=== PATIENT | female | born 1980 | race Caucasian/White ===

== ENCOUNTER 2016-10-07 22:07 | Emergency (ER) | payer OTHER ==
[~2016-10-07] VITALS: Ht 175.3 cm; Wt 54.4 kg
[2016-10-07 22:07] VITALS: BP_SYST 112
[2016-10-07] MEDS ORDERED: TOPI200T PO (22:47)
[2016-10-07] MEDS ORDERED: RIFA300C2 PO (22:47)
[2016-10-07] MEDS ORDERED: SER100 PO (22:47)
[2016-10-07] MEDS ORDERED: [UNRECOGNIZED DRUG - CODE] PO (22:47)
[2016-10-07] MEDS ORDERED: VANC1.257 IV (22:47)
[2016-10-07] MEDS ORDERED: MULT PO (22:51)
[2016-10-07] MEDS ORDERED: MELA1LIQ PO (23:03)
[2016-10-07] MEDS ORDERED: MORP30TA59 PO (23:03)
[2016-10-07] MEDS ORDERED: LUV50 PO (23:03)
[2016-10-07] MEDS ORDERED: GABA-531 PO (23:03)
[2016-10-07] MEDS ORDERED: ASCO500T20 PO (23:03)
[2016-10-07] MEDS ORDERED: LEVO750P3 IV (23:03)
[2016-10-07] MEDS ORDERED: FERR-57 PO (23:03)
[2016-10-07] MEDS ORDERED: BACL20TA PO (23:03)
[2016-10-07] MEDS ORDERED: FLUT16SP16 NS (23:03)
[2016-10-07] MEDS ORDERED: LACT10SO66 PO (23:03)
[2016-10-07] MEDS ORDERED: FAMO40TA7 PO (23:03)
[2016-10-07] MEDS ORDERED: BIOT25007 PO (23:03)
[2016-10-07] MEDS ORDERED: ZOLP10TA2 PO (23:05)
[2016-10-07] MEDS ORDERED: ACET-2165 PO (23:11)
[2016-10-07] MEDS ORDERED: ACET-73 PO ×2 (23:11)
[2016-10-07] MEDS ORDERED: MAGN400O4 PO (23:23)
[2016-10-07] MEDS ORDERED: TUM500 GT (23:23)
[2016-10-07] MEDS ORDERED: ALBU2.5V7 INH (23:23)
[2016-10-07] MEDS ORDERED: SACC250C3 PO (23:23)
[2016-10-07] MEDS ORDERED: PROM25TA15 PO (23:23)
[2016-10-07] MEDS ORDERED: OXYC-508 PO (23:23)
[2016-10-07] MEDS ORDERED: ALPR1TAB2 PO (23:23)
[2016-10-08 00:24] LABS: BILIRUBIN,URINE NEGATIVE (NEGATIVE); BLOOD, URINE NEGATIVE (NEGATIVE); CLARITY/URINE CLEAR (CLEAR); COLOR,URINE YELLOW (YELLOW); GLUCOSE,URINE NEGATIVE (NEGATIVE); KETONES,URINE NEGATIVE (NEGATIVE); LEUKOCYTE ESTERASE ,URINE TRACE (NEGATIVE); NITRITE, URINE NEGATIVE (NEGATIVE); PH,URINE 7.5 (5.0-8.0); PROTEIN URINE NEGATIVE (NEGATIVE); UROBILINOGEN,URINE 0.2 (0.2-1.0)
[2016-10-08 00:35] LABS: BASOPHILS # (AUTO) 0.1 K/uL (0.0-0.2); BASOPHILS % (AUTO) 1.1 % (0.0-2.0); EOSINOPHILS # (AUTO) 0.3 K/uL (0.0-0.4); EOSINOPHILS % (AUTO) 4.5 % (0.0-4.0); HEMATOCRIT 39.9 % (36-48); HEMOGLOBIN 12.9 g/dL (12.0-16.0); LYMPHOCYTES # (AUTO) 1.7 K/uL (1.0-5.5); LYMPHOCYTES % (AUTO) 26.8 % (20.5-51.5); MEAN CORPUSCULAR HEMOGLOBIN 28 pg (27-31); MEAN CORPUSCULAR HGB CONC 32 % (32-36); MEAN CORPUSCULAR VOLUME 88 fL (79.0-98.0); MONOCYTES # (AUTO) 0.7 K/uL (0.0-1.0); MONOCYTES % (AUTO) 10.7 % (1.7-9.3); NEUTROPHILS # (AUTO) 3.5 K/uL (1.8-7.7); NEUTROPHILS % (AUTO) 56.9 % (40.0-70.0); PLATELET COUNT (AUTO) 493 K/uL (130-430); RED BLOOD CELL COUNT(AUTO) 4.55 MIL/uL (4.2-6.2); RED CELL DISTRIBUTION WIDTH 15.9 % (9.0-15.0); WHITE BLOOD COUNT (AUTO) 6.3 K/uL (4.8-10.8)
[2016-10-08 00:42] LABS: BACTERIA,URINE FEW /HPF (None Seen); MUCUS,URINE None Seen /LPF (None Seen); RBC,URINE 0-3 /HPF (0-3)
[2016-10-08 00:42] LABS: CALCIUM 8.6 mg/dL (8.4-11.0); CREATININE 0.77 mg/dL (0.55-1.30); POTASSIUM 3.5 mmol/L (3.5-5.1)
[2016-10-08 00:47] LABS: TOTAL BILIRUBIN 0.3 mg/dL (0.0-1.0); TOTAL PROTEIN, SERUM 7.4 g/dL (6.4-8.3)
[2016-10-08] MEDS ORDERED: ALPRAZolam 0.25 MG TABLET PO ONE (01:00)
[2016-10-08 01:29] LABS: ERYTHROCYTE SEDIMENTATION RATE 6 MM/HR (0-20)
[2016-10-08 05:13] VITALS: BP_SYST 116
== END 2016-10-08 05:00 | disposition home or self-care (01) ==
LOC: SED 22:07
DX: R51 Headache (principal); F41.9 Anxiety disorder, unspecified; M54.9 Dorsalgia, unspecified; Z88.0 Allergy status to penicillin; Z79.899 Other long term (current) drug therapy
CPT/HCPCS: 36415; 71010; 80053; 81000-TC; 83605; 85025; 85651-TC; 87040-TC; 87086; 99285